=== PATIENT | male | born 1975 | race Caucasian/White ===

== ENCOUNTER 2016-08-03 19:35 | Emergency (ER) | payer OTHER ==
[2016-08-03 19:42] VITALS: BP 161/92
[2016-08-03 20:25] LABS: Hematocrit 48 % (42-52); Hemoglobin 16.2 g/dl (14.0-18.0); Mean Corpuscular HGB Conc 34 g/dl (31-36); Mean Corpuscular Hemoglobin 30 pg (27-31); Mean Corpuscular Volume 88 fL (80-94); Mean Platelet Volume 8 um3 (7.4-10.4); Red Blood Count 5.49 10^6/ul (4.0-5.4); Red Cell Distribution Width 13 % (10.5-15); White Blood Count 6.5 10^3/ul (3.5-10.8)
[2016-08-03 20:48] LABS: Albumin 4.7 g/dL (3.2-5.2); BUN/Creatinine Ratio 14.3 (8-20); Calcium 9.7 mg/dL (8.6-10.3); EGFR African American 92.9 (>60); EGFR Non-African American 72.3 (>60); Magnesium 2.2 mg/dL (1.9-2.7); Total Bilirubin 0.5 mg/dL (0.2-1.0); Total Protein 7.7 g/dL (6.4-8.9)
[2016-08-03 20:54] LABS: Potassium 3.7 mmol/L (3.5-5.0)
[2016-08-03 21:12] LABS: TSH (Thyroid Stimulating Horm) 3.05 mcIU/mL (0.34-5.60)
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
== END 2016-08-03 21:39 | disposition home or self-care (01) ==
LOC: ED 19:35
DX: R00.2 Palpitations (principal); R07.9 Chest pain, unspecified; R11.0 Nausea; R42 Dizziness and giddiness; F41.9 Anxiety disorder, unspecified
CPT/HCPCS: 36415; 80053; 83735; 84443; 84484; 85025; 93005; 99282

== ENCOUNTER 2016-08-10 08:33 | Observation (INO) | payer OTHER ==
[2016-08-10] MEDS ORDERED: Aspirin Low Dose CHEW TAB* 81 MG ONE (09:54)
[2016-08-10] MEDS ORDERED: Metoprolol Tartrate TAB* 25 MG ONE (09:55)
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
[2016-08-10] MEDS ORDERED: Atorvastatin* 40 MG TAB PO ONE ×2 (11:00→18:00)
[2016-08-10] MEDS ORDERED: NS 0.9% 1000 ML* 1,000 ML IV SCH ×2 (11:15→14:00)
[2016-08-10 11:28] LABS: Hematocrit 45 % (42-52); Hemoglobin 14.9 g/dl (14.0-18.0); Mean Corpuscular HGB Conc 33 g/dl (31-36); Mean Corpuscular Hemoglobin 29 pg (27-31); Mean Corpuscular Volume 87 fL (80-94); Mean Platelet Volume 8 um3 (7.4-10.4); Red Blood Count 5.15 10^6/ul (4.0-5.4); Red Cell Distribution Width 12 % (10.5-15); White Blood Count 4.9 10^3/ul (3.5-10.8)
[2016-08-10 11:42] LABS: BUN/Creatinine Ratio 15.2 (8-20); Calcium 9.2 mg/dL (8.6-10.3); EGFR African American 100.1 (>60); EGFR Non-African American 77.8 (>60); HDL Cholesterol 58.4 mg/dL; Potassium 4.1 mmol/L (3.5-5.0)
[2016-08-10] MEDS ORDERED: VERAPAMIL 2.5 MG/ML 4 ML VIAL ONE (11:56)
[2016-08-10] MEDS ORDERED: Midazolam* 1 MG/ML 5 ML VIAL (5 MG) ONE (11:56)
[2016-08-10] MEDS ORDERED: fentaNYL* 50 MCG/ML 2 ML VIAL (100 MCG VIAL) ONE ×2 (11:56→12:30)
[2016-08-10] MEDS ORDERED: Heparin(*) 1000 UNIT/ML 10 ML VIAL CATH LAB IV ONE (11:57)
[2016-08-10] MEDS ORDERED: nitroGLYCERIN DRIP* 250 ML ONE (11:57)
[2016-08-10] MEDS ORDERED: Iohexol 350 (CONTRAST) 200 ML MDV IV ONE (11:57)
[2016-08-10] MEDS ORDERED: Heparin 2 UNITS/ML IVPREMIX* 2,000 ML IV ONE (11:57)
[2016-08-10] MEDS ORDERED: Lidocaine 1% INJ* 10 MG/ML 30 ML SDV ONE (11:57)
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
[2016-08-10] MEDS ORDERED: Nitroglycerin TAB 0.4 MG* 0.4 MG TAB SL PRN (13:54)
[2016-08-10] MEDS: Diltiazem CD CAP* 240 MG PO SCH (14:45)
[2016-08-10] MEDS: Isosorbide Mononitrate ER TAB* 30 MG PO SCH (14:45)
[2016-08-10] MEDS ORDERED: Acetaminophen TAB* 325 MG ONE (22:23)
[2016-08-10] MEDS ORDERED: Acetaminophen TAB* 325 MG PO PRN (22:32)
[2016-08-10] MEDS ORDERED: Ondansetron INJ* 2 MG/ML VIAL IV PRN (22:33)
[2016-08-11] MEDS: Isosorbide Mononitrate ER TAB* 30 MG PO SCH (06:55)
[2016-08-11] MEDS: Diltiazem CD CAP* 240 MG PO SCH (08:51)
[2016-08-11 09:07] VITALS: BP 111/71
[2016-08-11] MEDS ORDERED: Aspirin Low Dose CHEW TAB* 81 MG PO SCH (10:00)
--- NOTE | 2016-08-11 12:02 | CATH ---
CATH REPORT: DATE OF CATH: 08/10/16 - ROOM #[id number] PRIMARY CARE PHYSICIAN: Dr. Pittman. PULLING UNIT FLOORHAND: Dr. Harsha Alexis. PROCEDURES: Right radial artery access, bilateral selective coronary cineangiography, left heart catheterization, left ventriculography. HISTORY: A 40-year-old male with exertional angina, functional class III, as well as occasional rest pain, markedly early positive stress echo with anterior wall ischemia and ST elevation with chest pain referred for coronary angiography. PROCEDURE ACCESS: Right radial artery sheath 6F slender. MEDICATIONS: 1. Subcu lidocaine. 2. IV Versed. 3. IV Fentanyl. 4. Heparin 3000 units. 5. Verapamil 3 mg. 6. Nitroglycerin 300 mcg IA. The right radial is very superficial, was accessed with ultrasound assistance. DIAGNOSTIC CATHETER: 5F TIG4, 5F pigtail. HEMODYNAMICS: Initial BP 122/68, LV 114/5-15, no aortic valve gradient on pullback. ANGIOGRAPHY: Left main: The left main is long, smooth, has no stenosis. LAD: The LAD is large, extends to the apex, it has a proximal 30% stenosis after the first septal. Mid LAD supplies a moderate diagonal, the LAD has no other significant stenosis. Circumflex: The circumflex is moderate, not dominant with a ramus branch, a smaller marginal, the circumflex is retroflexed, it ends with a posterolateral, the circumflex has no stenosis. RCA: The RCA is tortuous, large, dominant, the acute marginal branch supplies a portion of the inferior septum. The PDA is large followed by moderate posterolateral. The RCA has no significant stenosis. LV gram: Wall motion is normal, estimated LVEF 65%. CONCLUSION: 1. No significant obstructive coronary artery disease, presumptive coronary spasm, LAD distribution based on markedly positive stress echo with ST elevation , reproduction of chest pain and anterior wall ischemia on stress echo. 2. Normal LV systolic function. 3. Normal left-sided hemodynamics. 4. Successful right radial artery access. CC: Dr. Pittman; Dr. Harsha Alexis. * [id number]/[facility] #: [id number] MTDD
--- NOTE | 2016-08-11 12:28 | DS ---
DISCHARGE SUMMARY: DATE OF ADMISSION: 08/10/16 DATE OF DISCHARGE: 08/11/16 PRIMARY CARE PROVIDER: Delgado Pittman MD CHURN DRILLER HELPER: Harsha Alexis DO DISCHARGE DIAGNOSES: 1. Prinzmetal's angina. 2. Dyslipidemia. 3. Family history of premature coronary artery disease. PROCEDURE: Cardiac cath. DISCHARGE MEDICATIONS: 1. Aspirin 81 mg daily. 2. Cardizem CD 240 mg daily. 3. Isordil 15 mg b.i.d. 4. Nitroglycerin 0.4 sublingual p.r.n. 5. Lipitor 80 mg daily. WOUND CARE: Shower only 2 days. ACTIVITY: No strenuous exertion for 2 days. FOLLOWUP: Follow up with Dr. Alexis next week. HISTORY: See the consult note. LABORATORY DATA: BMP was normal, cholesterol 222, triglycerides 88, LDL 146, HDL 58.4 on no statin. CBC was normal. HOSPITAL COURSE: He underwent outpatient catheterization after a markedly early positive stress echo with reproduction of angina, anterior ST elevation and anterior wall ischemia on the echo. Catheterization via the right radial approach was uncomplicated, demonstrated 30% proximal LAD stenosis without significant obstructive disease. The presumptive diagnosis is Prinzmetal's angina. He was started on Cardizem CD as well as Isordil. Isordil has been decreased from 30 to 15 because of a headache, he will continue b.i.d. Isordil if possible. He understands the importance of using a nitroglycerin for anginal relief. He is under a lot of work stress. He was started on a high dose statin to improve endothelial function. His cath site is stable, he has not had any angina overnight, he is being discharged to outpatient followup. CC: Delgado Pittman MD; Harsha Alexis DO* [id number]/[facility] #: [id number] [facility]
[2016-08-11] MEDS ORDERED: Atorvastatin* 80 MG TAB PO SCH (17:00)
== END 2016-08-11 10:53 | disposition home or self-care (01) ==
LOC: CHICARD 08:33 → MEDTELE 17:00
PROVIDERS: ADMIT Internal Medicine; ATTEND Internal Medicine
DX: I20.1 Angina pectoris with documented spasm (principal); E78.5 Hyperlipidemia, unspecified; Z82.49 Family history of ischemic heart disease and other diseases of the circulatory system; R07.9 Chest pain, unspecified; Z79.82 Long term (current) use of aspirin; Z79.899 Other long term (current) drug therapy; Z88.8 Allergy status to other drugs, medicaments and biological substances
CPT/HCPCS: 36415; 80048; 80061; 85025; 85610; 85730; 93458; A9270-GY; G0378; J1644; J2250; J2405; J3010

== ENCOUNTER 2016-08-15 10:05 | Emergency (ER) | payer OTHER ==
[2016-08-15] MEDS ORDERED: Aspirin Low Dose CHEW TAB* 81 MG PO ONE (11:19)
[2016-08-15 11:48] LABS: Hematocrit 45 % (42-52); Hemoglobin 15.3 g/dl (14.0-18.0); Mean Corpuscular HGB Conc 34 g/dl (31-36); Mean Corpuscular Hemoglobin 30 pg (27-31); Mean Corpuscular Volume 87 fL (80-94); Mean Platelet Volume 8 um3 (7.4-10.4); Red Blood Count 5.18 10^6/ul (4.0-5.4); Red Cell Distribution Width 13 % (10.5-15); White Blood Count 5.9 10^3/ul (3.5-10.8)
--- NOTE | 2016-08-15 11:49 | RAD ---
INDICATION: Chest pain and palpitations COMPARISON: None. TECHNIQUE: Single AP portable view of the chest was obtained. FINDINGS: Image quality is compromised due to the relative inferiority of a portable chest x-ray. The heart and mediastinum exhibit normal size and contour. In the AP view the lungs appear hyperaerated. Otherwise the lungs are grossly clear. There is no evidence of a large pleural effusion. Visualized bones are normal for the patient's age. IMPRESSION: No radiographic evidence for acute cardiopulmonary abnormality on this portable chest x-ray.
[2016-08-15 12:03] LABS: Albumin 4.5 g/dL (3.2-5.2); BUN/Creatinine Ratio 12.6 (8-20); Calcium 9.6 mg/dL (8.6-10.3); EGFR African American 93.9 (>60); Globulin 3.2 g/dL (2-4); Potassium 4.1 mmol/L (3.5-5.0); Total Bilirubin 0.8 mg/dL (0.2-1.0); Total Protein 7.7 g/dL (6.4-8.9)
[2016-08-15 12:08] LABS: Troponin I 0.01 ng/mL (<0.04)
[2016-08-15] MEDS ORDERED: Diltiazem CD CAP* 240 MG PO ONE (13:26)
[2016-08-15 13:39] LABS: Magnesium 2.1 mg/dL (1.9-2.7)
[2016-08-15 14:02] LABS: TSH (Thyroid Stimulating Horm) 3.86 mcIU/mL (0.34-5.60)
[2016-08-15 14:09] LABS: Free T4 0.88 ng/dL (0.61-1.12)
[2016-08-15 15:23] VITALS: BP 109/75
--- NOTE | 2016-08-16 22:15 | ED ---
Osvaldo Hanley Rebecca, scribed for Kishore Agustin MD on 08/15/16 at 1107 . HPI Chest Pain - HPI Summary HPI Summary: Pt is a 40 y/o M who presents to ED c/o CP. Pain began suddenly last night at 2300 and has been intermittent since onset. Pt took NTG last night at 0000. CP is characterized as pressure and burning. Sx aggravated by nothing, alleviated by NTG. Additionally c/o slight anxiety and palpitations, stating his "heart was throbbing." Started a new job in January, which he reports as being extremely stressful. Pt had a stress test 2 weeks ago, which he failed. Had a cardiac catheterization on Wednesday. Recently started 4 new medications (Imdur, Diltiazem , 81 mg ASA and Atorvastatin). Has an appointment with Dr. Reuben rivas. SHx no smoking, drugs or alcohol. Discussed sx with Dr. Bright who referred him to [facility] ED. - History of Current Complaint Chief Complaint: EDChestPainROMI Time Seen by Provider: 08/15/16 11:02 Hx Obtained From: Patient Onset/Duration: Started Hours Ago - 12 hours ago Timing: Intermittent Initial Severity: Moderate Current Severity: None Pain Intensity: 0 Pain Scale Used: 0-10 Numeric Chest Pain Location: Mid Sternal Chest Pain Radiates: No Character: Burning, Pressure/Squeezing Aggravating Factor(s): Nothing Alleviating Factor(s): NTG 123 Associated Signs and Symptoms: Positive: Anxiety, Palpitations - Allergy/Home Medications Allergies/Adverse Reactions: Allergies Allergy/AdvReac Type Severity Reaction Status Date / Time Steroids AdvReac Unknown See Comment Uncoded 08/11/16 00:17 PMH/Surg Hx/FS Hx/Imm Hx Endocrine/Hematology History: Denies: Hx Diabetes, Hx Thyroid Disease Cardiovascular History: Reports: Hx Angina - chest pain improves with rest, Hx Hypercholesterolemia Denies: Hx Peripheral Vascular Disease Musculoskeletal History: Reports: Other Musculoskeletal History - PMHx Costochondritis Denies: Hx Arthritis, Hx Osteoporosis Neurological History: Denies: Hx Headaches, Hx Seizures, Hx Transient Ischemic Attacks (TIA) Psychiatric History: Reports: Hx Anxiety - Surgical History Surgery Procedure, Year, and Place: Cervical spine fusion, 2000, [place]. Lap appendectomy, 2001, [place]. Hernia repair, 1977, [place] Hx Anesthesia Reactions: No Infectious Disease History: No Infectious Disease History: Denies: Traveled Outside the [place] in Last 30 Days - Family History Known Family History: Positive: Cardiac Disease, Diabetes, Other - HLD - Social History Alcohol Use: Rare Hx Substance Use: No Substance Use Type: Reports: None Hx Tobacco Use: No Smoking Status (MU): Never Smoked Tobacco Review of Systems Negative: Fever, Chills Negative: Blurred Vision, Erythema Negative: Sore Throat Positive: Palpitations, Chest Pain - currently resolved Negative: Shortness Of Breath, Cough Negative: Abdominal Pain, Vomiting, Nausea Negative: dysuria, hematuria Negative: Myalgia, Edema Negative: Rash Neurological: Other - Denies dizziness Positive: Anxious All Other Systems Reviewed And Are Negative: Yes Physical Exam - Summary Physical Exam Summary: Constitutional: Well-developed, Well-nourished, Alert. (-) Distressed Skin: Warm, Dry HENT: Eyes: Conjunctiva normal Neck: Musculoskeletal ROM normal neck. (-) JVD, (-) Stridor, (-) Tracheal deviation Cardio: Rhythm regular, rate normal, Heart sounds normal; Intact distal pulses; The pedal pulses are 2+ and symmetric. Radial pulses are 2+ and symmetric. (-) Murmur Pulmonary/Chest wall: Effort normal. (-) Respiratory distress, (-) Wheezes, (-) Rales Abd: Soft, (-) Tenderness, (-) Distension, (-) Guarding, (-) Rebound Musculoskeletal: (-) Edema Lymph: (-) Cervical adenopathy Neuro: Alert, Oriented x3 Psych: Mood and affect Normal Triage Information Reviewed: Yes Vital Signs On Initial Exam: Initial Vitals BP 122/76 08/15/16 10:19 Vital Signs Reviewed: Yes - Ehrenberg Coma Scale Coma Scale Total: 15 Diagnostics - Vital Signs Vital Signs Temp Pulse Resp BP Pulse Ox 08/15/16 11:00 70 17 112/71 98 08/15/16 10:30 67 16 117/70 98 08/15/16 10:22 99.0 F 67 18 122/76 98 08/15/16 10:21 67 17 98 08/15/16 10:19 122/76 - Laboratory Result Diagrams: 08/15/16 11:40 08/15/16 11:40 Lab Statement: Any lab studies that have been ordered have been reviewed, and results considered in the medical decision making process. - Radiology CXR Xray Interpretation: No Acute Changes Radiology Interpretation Completed By: Radiologist - EKG 1259 Cardiac Rate: NL - 74 bpm EKG Rhythm: Sinus Rhythm EKG Interpretation: No STEMI Re-Evaluation - Re-Evaluation First Eval Re-Evaluation Time: 13:26 Change: Improved Comment: Still CP free, has not taken his Diltiazem. Chest Pain Course/Dx - Course Assessment/Plan: Pt is a 40 y/o M with a CC of intermittent CP for the last 12 hours. Cardiac catheterization 5 days ago. Additionally c/o anxiety and palpitations. EKG and CXR reveal no acute pathology. Discussed care of pt with Dr. Oliver, cariologist, who suggests an outpatient follow up. Pt will be D/ C to home with a followup with Dr. alexis and dx of medication adverse effect and palpitations. - Diagnoses Provider Diagnoses: Medication adverse effect, Palpitations - Provider Notifications Discussed Care Of Patient With: Dr. Oliver, strong nitric operator. Reviewed labs, results, pt complaint and monitor. He believes that the pt is adjusting to his new medications. Suggests an outpatient follow up. Time Discussed With Above Provider: 13:02 Discharge - Discharge Plan Condition: Stable Disposition: HOME Patient Education Materials: Palpitations (ED), Adverse Drug Reaction (ED) Referrals: Harsha Alexis DO [Medical Doctor] - 08/19/16 Additional Instructions: Return to ER for any returning or worsening symptoms. The documentation as recorded by the Osvaldo kebede Rebecca accurately reflects the service I personally performed and the decisions made by me, Kishore Agustin MD.
== END 2016-08-15 15:23 | disposition home or self-care (01) ==
LOC: ED 10:05
DX: T50.905A Adverse effect of unspecified drugs, medicaments and biological substances, initial encounter (principal); R07.9 Chest pain, unspecified; R00.2 Palpitations; F41.9 Anxiety disorder, unspecified; Y92.9 Unspecified place or not applicable
CPT/HCPCS: 36415; 71010; 80053; 83605; 83735; 84439; 84443; 84484; 85025; 93005; 99282; A9270-GY